=== PATIENT | female | born 1965 | race African-American/Black ===

== ENCOUNTER 2017-05-03 14:02 | Observation (INO) ==
[2017-05-03] MEDS ORDERED: METOPROLOL TARTRATE 5 MG/5 ML VIAL IV STA (14:38)
[2017-05-03] MEDS ORDERED: ENOXAPARIN 100 MG/ML SYRINGE SUBCUT STA (14:38)
[2017-05-03] MEDS ORDERED: NITROGLYCERIN 2% OINT 1 INCH/GM PACK TOP STA (14:38)
[2017-05-03] MEDS ORDERED: ASPIRIN 325 MG TABLET PO STA (14:38)
[2017-05-03] MEDS ORDERED: NITROGLYCERIN SL 0.4 MG TABLET SL PRN (14:38)
[2017-05-03] MEDS ORDERED: ONDANSETRON 4 MG/2 ML VIAL IV STA (14:38)
[2017-05-03] MEDS ORDERED: ENOXAPARIN 100 MG/ML SYRINGE SUBCUT ONE (15:16)
[2017-05-03] MEDS ORDERED: ONDANSETRON 4 MG/2 ML VIAL ONE (15:17)
[2017-05-03] MEDS ORDERED: ASPIRIN 325 MG TABLET ONE (15:17)
[2017-05-03] MEDS ORDERED: METOPROLOL TARTRATE 5 MG/5 ML VIAL IV ONE (15:17)
[2017-05-03] MEDS ORDERED: NITROGLYCERIN 2% OINT 1 INCH/GM PACK TOP ONE (15:17)
[2017-05-03] MEDS ORDERED: NITROGLYCERIN SL 0.4 MG TABLET SL ONE (15:18)
[2017-05-03 15:40] LABS: Apearance,Urine CLEAR (Clear); Bilirubin,Urine Negative (Negative); Blood, Urine Negative (Negative); Glucose,Urine (UA) Negative (Negative); Ketones,Urine Negative (Negative); Mucus,Urine Occasional /LPF (Occasional); Nitrite,Urine Negative (Negative); Protein,Urine Negative; Urine Color Straw (Yellow); Urine Specific Gravity 1.004 (1.001-1.035); Urine Urobilinogen < 2.0 EU/DL (0.2-1.0); WBC,Urine <1 /HPF (0-6)
[2017-05-03 15:50] LABS: Barbiturates Screen,Urine Negative (Negative); Benzodiazepines Screen,Urine Negative (Negative); Cannabinoid Screen,Urine Negative (Negative); Opiate Screen,Urine Negative (Negative); Phencyclidine Screen,Urine Negative (Negative)
[2017-05-03 16:09] LABS: Basophils % 0.5 % (0.0-0.8); Eosinophils # 0.1 10*3/uL (0.0-0.87); Eosinophils % 2.9 % (0.00-10.9); Hematocrit 34.9 VOL% (35.7-47.0); Hemoglobin 11.3 GM/DL (12.0-16.0); Immature Granulocytes % 0.2 %; Immature Granulocytes Absolute 0.01 #; Lymphocytes # 1.4 10*3/uL (1.4-4.0); Lymphocytes % 34.1 % (21.3-54.2); Mean Corpuscular HGB Conc 32.4 GM/DL (32-36); Mean Corpuscular Hemoglobin 27 PG (27-34); Mean Corpuscular Volume 84.1 FL (87-102); Mean Platelet Volume 9.6 FL (9.6-12.0); Monocytes # 0.4 10*3/uL (0.11-0.8); Monocytes % 10.2 % (1.7-12.7); Neutrophils # 2.2 10*3/uL (1.4-7.4); Neutrophils % 52.1 % (38.7-73.9); Platelet Count 234 T/CUMM (130-400); Red Blood Count 4.15 MC/CUMM (3.8-5.5); Red Cell Distribution Width 13.8 % (9.3-17.3); White Blood Count 4.1 T/CUMM (4-12)
[2017-05-03 16:17] LABS: PT Patient Result 10.6 SECS; Partial Thromboplastin Time 25.4 SECS (0-40)
[2017-05-03 16:19] LABS: Alanine Aminotransferase 22 U/L (13-56); Alkaline Phosphatase 89 U/L (45-117); Aspartate Amino Transferase 18 U/L (0-37); Bilirubin,Total < 0.39 MG/DL (0.2-1.0); Blood Urea Nitrogen 10 MG/DL (7-18); Calcium 9.5 MG/DL (8.5-10.1); Glucose 75 MG/DL (74-106); Osmolality,Calculated 276.4 MOS/KG (273-304); Potassium 3.7 MMOL/L (3.5-5.1); Sodium 140 MMOL/L (136-145); Total Protein 7.6 G/DL (6.4-8.3)
[2017-05-03] MEDS ORDERED: traMADol 50 MG TABLET PO PRN (17:33)
[2017-05-03] MEDS ORDERED: DICYCLOMINE 10 MG CAPSULE PO PRN (17:33)
[2017-05-03] MEDS ORDERED: ALBUTEROL/IPRATROPIUM 3 ML NEB RESP TX PRN (17:33)
[2017-05-03] MEDS ORDERED: ALBUTEROL 2.5 MG/3 ML NEB RESP TX PRN (17:33)
[2017-05-03] MEDS ORDERED: GABAPENTIN 100 MG CAPSULE PO PRN (17:33)
[2017-05-03] MEDS ORDERED: GLUCAGON 1 MG VIAL IM PRN (17:34)
[2017-05-03] MEDS ORDERED: DEXTROSE 50% 25 GM/50 ML VIAL IV PRN (17:34)
[2017-05-03] MEDS ORDERED: ONDANSETRON 4 MG/2 ML VIAL IV PRN (17:45)
[2017-05-03] MEDS ORDERED: PROMETHAZINE 25 MG/1 ML VIAL IM STA (19:50)
[2017-05-03] MEDS ORDERED: MEPERIDINE 25 MG/1 ML VIAL IM STA (19:50)
[2017-05-03] MEDS ORDERED: AMITRIPTYLINE 25 MG TABLET PO SCH (21:00)
[2017-05-03] MEDS ORDERED: DIPYRIDAMOLE/ASPIRIN 200-25 MG CAPSULE PO SCH (21:00)
[2017-05-03] MEDS: LOSARTAN 50 MG TABLET PO SCH (22:16)
[2017-05-03] MEDS: BACLOFEN 10 MG TABLET PO SCH (22:17)
[2017-05-03] MEDS: NITROGLYCERIN 2% OINT 1 INCH/GM PACK TOP SCH (22:17)
[2017-05-03] MEDS: LABETALOL 200 MG TABLET PO SCH (22:17)
[2017-05-03] MEDS: POTASSIUM CHLORIDE 20 MEQ TABLET PO SCH (22:17)
[2017-05-03] MEDS: METOPROLOL TARTRATE 25 MG TABLET PO SCH (22:18)
[2017-05-03] MEDS: MYCOPHENOLATE MOFETIL 250 MG CAPSULE PO SCH (22:33)
[2017-05-04] MEDS: INSULIN REGULAR 100 UNIT/ML SUBCUT SCH ×4 (01:37→17:36)
[2017-05-04] MEDS: NITROGLYCERIN 2% OINT 1 INCH/GM PACK TOP SCH ×3 (01:38→15:02)
[2017-05-04] MEDS: FLUTICASONE/SALMETEROL 250-50 DISKUS 14 DOSE INH SCH ×2 (03:38→15:01)
[2017-05-04 05:34] LABS: Risk Ratio 2.28; VLDL CHOLESTEROL 14.2 MG/DL
[2017-05-04] MEDS ORDERED: MONTELUKAST 10 MG TABLET PO SCH (09:00)
[2017-05-04] MEDS ORDERED: POTASSIUM CHLORIDE RIDER 10 MEQ in PREMIX 1 EACH IV PRN (10:47)
[2017-05-04] MEDS ORDERED: DIAZEPAM 5 MG TABLET PO ONE (10:47)
[2017-05-04] MEDS ORDERED: diphenhydrAMINE CAP 25 MG CAPSULE PO ONE (10:47)
[2017-05-04] MEDS ORDERED: MAGNESIUM SULF RIDER 2 GM in PREMIX 1 EACH IV PRN (10:47)
[2017-05-04] MEDS ORDERED: ALBUTEROL/IPRATROPIUM 3 ML NEB RESP TX ONE (10:59)
[2017-05-04] MEDS ORDERED: SODIUM CHLORIDE 0.45% 1,000 ML IV SCH (11:00)
[2017-05-04] MEDS ORDERED: HEPARIN/NACL 0.9% 2 UNITS/ML 1,000 ML IV ONE ×2 (11:02→11:17)
[2017-05-04] MEDS ORDERED: LIDOCAINE 1% 20 ML VIAL ONE (11:03)
[2017-05-04] MEDS ORDERED: VERAPAMIL 5 MG/2 ML VIAL ONE (11:03)
[2017-05-04] MEDS ORDERED: NITROGLYCERIN DRIP 50 MG/250 ML BOTTLE IV ONE (11:03)
[2017-05-04] MEDS ORDERED: ASPIRIN 325 MG TABLET ONE (11:04)
[2017-05-04] MEDS ORDERED: ASPIRIN 325 MG TABLET PO ONE (11:06)
[2017-05-04] MEDS ORDERED: methylPREDNISolone SOD SUC 125 MG/2 ML VIAL IV STA (11:06)
[2017-05-04] MEDS: LOSARTAN 50 MG TABLET PO SCH (11:10)
[2017-05-04] MEDS: POTASSIUM CHLORIDE 20 MEQ TABLET PO SCH (11:23)
[2017-05-04] MEDS: MYCOPHENOLATE MOFETIL 250 MG CAPSULE PO SCH (11:23)
[2017-05-04] MEDS: BACLOFEN 10 MG TABLET PO SCH ×2 (11:23→17:36)
[2017-05-04] MEDS: METOPROLOL TARTRATE 25 MG TABLET PO SCH (11:24)
[2017-05-04] MEDS ORDERED: HYDROmorphone 2 MG/1 ML VIAL ONE (11:24)
[2017-05-04] MEDS ORDERED: MIDAZOLAM 2 MG/2 ML VIAL ONE (11:25)
[2017-05-04] MEDS ORDERED: HYDROCORTISONE 100 MG VIAL IV SCH (11:30)
[2017-05-04] MEDS ORDERED: ENOXAPARIN 30 MG/0.3 ML SYRINGE ONE (11:33)
[2017-05-04 16:24] VITALS: BP 132/84
[2017-05-04] MEDS: LABETALOL 200 MG TABLET PO SCH (17:35)
[2017-05-04] MEDS ORDERED: ENOXAPARIN 40 MG/0.4 ML SYRINGE SUBCUT SCH (21:00)
== END 2017-05-04 17:36 | disposition home or self-care (01) ==
LOC: N.ED 14:02 → N.EDINP 14:02 → N.TELEN 18:48
PROVIDERS: ADMIT Internal Medicine; ATTEND Internal Medicine
PROC: CLCCHCL (ICD-10-PCS; 2017-05-04 11:45)